=== PATIENT | male | born 1990 | race Caucasian/White ===

== ENCOUNTER 2022-09-19 13:49 | Outpatient (REF) | payer MEDICARE, MEDICAID, SELFPAY | END 2022-09-19 13:50 | disposition home or self-care (01) | LOC: HO.SH 13:49 | PROVIDERS: Visit Provider Internal Medicine | DX: Z01.118 Encounter for examination of ears and hearing with other abnormal findings (principal); H93.293 Other abnormal auditory perceptions, bilateral | CPT/HCPCS: 92552; 92556; 92567; 92587 ==

== ENCOUNTER 2024-04-01 15:43 | Outpatient (REF) | payer MEDICARE, MEDICAID, SELFPAY | END 2024-04-01 15:44 | disposition home or self-care (01) | LOC: HO.SH 15:43 | PROVIDERS: Visit Provider Physician Assistant | DX: Z01.118 Encounter for examination of ears and hearing with other abnormal findings (principal); H93.293 Other abnormal auditory perceptions, bilateral | CPT/HCPCS: 92556; 92567; 92579; 92588 ==